=== PATIENT | male | born 1955 | race Caucasian/White ===

== ENCOUNTER 2016-09-20 04:45 | Emergency (ER) | payer MEDICARE, MEDICAID ==
[~2016-09-20] VITALS: Ht 180.3 cm; Wt 76.4 kg
[~2016-09-20 04:45] MED LIST: AMIO200T42 PO; AMLO5TAB2 PO; GLYB5TAB3 PO; LISI-167 PO; LISI-170 PO; METF10002 PO; METO-93 PO; METO25TA35 PO; RIVA20TA PO; WARF2TAB7 PO
[2016-09-20 04:47] VITALS: BP 184/90
[2016-09-20] MEDS ORDERED: ONDANSETRON ODT 4 MG PO ONE (07:30)
[2016-09-20 07:42] LABS: ASPARTATE AMINO TRANSFERASE 22 U/L (15-37); BLOOD UREA NITROGEN 21 mg/dL (7-18)
[2016-09-20] MEDS ORDERED: ONDANSETRON ODT 4 MG ONE (08:15)
== END 2016-09-20 08:32 | disposition left against medical advice (07) ==
LOC: ED 08:00
DX: R10.84 Generalized abdominal pain (principal); I10 Essential (primary) hypertension; I48.91 Unspecified atrial fibrillation; J44.9 Chronic obstructive pulmonary disease, unspecified; F17.210 Nicotine dependence, cigarettes, uncomplicated; F20.9 Schizophrenia, unspecified
CPT/HCPCS: 36415; 80053; 83690; 85025; 99284

== ENCOUNTER 2016-11-16 04:17 | Emergency (ER) | payer MEDICAID, MEDICARE ==
[~2016-11-16] VITALS: Ht 180.3 cm; Wt 80.1 kg
[2016-11-16 04:18] VITALS: BP 113/59
== END 2016-11-16 05:30 | disposition home or self-care (01) ==
LOC: ED 05:15
DX: R53.1 Weakness (principal); R53.83 Other fatigue; I50.9 Heart failure, unspecified; F20.9 Schizophrenia, unspecified; I48.91 Unspecified atrial fibrillation; J44.9 Chronic obstructive pulmonary disease, unspecified; I11.0 Hypertensive heart disease with heart failure; Z72.89 Other problems related to lifestyle
CPT/HCPCS: 82962; 93005; 99283

== ENCOUNTER 2016-12-12 22:11 | Inpatient (IN) | payer MEDICARE, MEDICAID ==
[~2016-12-12] VITALS: Ht 170.2 cm; Wt 84.5 kg
[2016-12-12 23:22] LABS: WHITE BLOOD COUNT 10.2 x10^3/uL (3.4-10)
[2016-12-12 23:23] LABS: HEMATOCRIT 21.8 % (39.2-51.8); HEMOGLOBIN 6.7 g/dL (13.7-18.0)
[2016-12-12 23:25] LABS: ASPARTATE AMINO TRANSFERASE 41 U/L (15-37); BLOOD UREA NITROGEN 24 mg/dL (7-18)
[2016-12-12 23:46] LABS: ANISOCYTOSIS 1+; HYPOCHROMIA 1+; MICROCYTOSIS 1+; OVALOCYTES 1+; POLYCHROMASIA 1+
[2016-12-12] MEDS ORDERED: LORazepam 2 MG/ML, 1ML ONE (23:46)
[2016-12-12] MEDS ORDERED: ZIPRASIDONE 20 MG INJ IM ONE (23:55)
[2016-12-13] VITALS (8 sets, daily range): BP systolic 159–194; BP diastolic 73–91
[2016-12-13] MEDS ORDERED: SODIUM CHLORIDE 0.9% 1,000ML IVBOLUS ONE
[2016-12-13] MEDS ORDERED: ZIPRASIDONE 20 MG INJ IM ONE
[2016-12-13] MEDS ORDERED: SODIUM CHLORIDE FLUSH 10ML SYR IVF ONE
[2016-12-13] MEDS ORDERED: PANTOPRAZOLE 80 MG in SODIUM CHLORIDE 0.9% 50 ML IVPB ONE (00:33)
[2016-12-13] MEDS ORDERED: NS + 20MEQ KCL 1,000 ML IV SCH (00:39)
[2016-12-13] MEDS ORDERED: PANTOPRAZOLE 40 MG IV IVP ONE (01:00)
[2016-12-13] MEDS ORDERED: POLYETHYLENE GLYCOL 17 GM PACKET PO PRN (01:00)
[2016-12-13] MEDS ORDERED: DOCUSATE 100 MG CAPSULE PO PRN (01:00)
[2016-12-13] MEDS ORDERED: ACETAMINOPHEN 325 MG TABLET PO PRN (01:00)
[2016-12-13] MEDS ORDERED: morphine SULFATE 10 MG/ML, 1ML IVPush PRN (01:00)
[2016-12-13] MEDS ORDERED: HYDROcodone/APAP 5/325 TABLET PO PRN (01:00)
[2016-12-13] MEDS ORDERED: ONDANSETRON 2MG/ML, 2ML IVPush PRN (01:00)
[2016-12-13] MEDS ORDERED: LORazepam 2 MG/ML, 1ML ONE (01:10)
[2016-12-13 01:22] LABS: FERRITIN 9.4 ng/mL (26-388)
[2016-12-13] MEDS ORDERED: LORazepam 2 MG/ML, 1ML IM PRN (01:30)
[2016-12-13] MEDS ORDERED: LORazepam 2 MG/ML, 1ML IM ONE ×2 (02:30)
[2016-12-13 04:02] LABS: PATH.CAST-FLAG NOT PRESENT; SPERM-FLAG NOT PRESENT; SRC-FLAG NOT PRESENT; XTAL-FLAG NOT PRESENT; YLC-FLAG NOT PRESENT
[2016-12-13 07:54] LABS: BLOOD UREA NITROGEN 18 mg/dL (7-18)
[2016-12-13 07:56] LABS: WHITE BLOOD COUNT 9.9 x10^3/uL (3.4-10)
[2016-12-13 07:58] LABS: DIFF TOTAL CELLS COUNTED 100 CELL DIFF
[2016-12-13] MEDS ORDERED: POTASSIUM CHLORIDE 20 MEQ TAB.ER.PRT PO ONE (08:00)
[2016-12-13] MEDS ORDERED: MAGNESIUM SULFATE PMX 2GM/50ML 50 ML IV ONE (08:00)
[2016-12-13 08:13] LABS: HEMATOCRIT 20.6 % (39.2-51.8); HEMOGLOBIN 6.6 g/dL (13.7-18.0)
[2016-12-13 08:33] LABS: ANISOCYTOSIS 1+; HYPOCHROMIA 1+; MICROCYTOSIS 1+; OVALOCYTES 1+; POLYCHROMASIA 1+; VERIFY COUNTS? YES
[2016-12-13] MEDS: AMIODARONE 200 MG TABLET PO SCH (09:00)
[2016-12-13] MEDS: METOPROLOL SUCCINATE 50 MG TAB.ER.24H PO SCH (09:00)
[2016-12-13] MEDS: NS + 20MEQ KCL 1,000 ML IV SCH ×2 (09:30→21:39)
[2016-12-13] MEDS ORDERED: LABETALOL 5MG/ML, 20ML IVPush PRN (14:00)
[2016-12-13] MEDS: IRON SUCROSE COMPLEX 100MG/5ML IV SCH (16:22)
[2016-12-13] MEDS ORDERED: LORazepam 2 MG/ML, 1ML IVPush PRN (21:30)
[2016-12-13] MEDS ORDERED: HALOPERIDOL 5 MG/ML IM PRN (21:30)
[2016-12-13 23:53] LABS: OCCBLD OBC PASS
[2016-12-14] MEDS ORDERED: MAGNESIUM SULFATE PMX 2GM/50ML 50 ML IV ONE ×2 (00:30→10:30)
[2016-12-14 02:00] VITALS: BP 146/72
[2016-12-14 06:28] LABS: HEMATOCRIT 26.8 % (39.2-51.8); HEMOGLOBIN 8.6 g/dL (13.7-18.0); WHITE BLOOD COUNT 9.1 x10^3/uL (3.4-10)
[2016-12-14 06:32] LABS: BLOOD UREA NITROGEN 11 mg/dL (7-18)
[2016-12-14 06:46] LABS: ASPARTATE AMINO TRANSFERASE 30 U/L (15-37)
[2016-12-14 08:20] VITALS: BP 160/61
[2016-12-14] MEDS: IRON SUCROSE COMPLEX 100MG/5ML IV SCH (08:21)
[2016-12-14] MEDS: METOPROLOL SUCCINATE 50 MG TAB.ER.24H PO SCH (08:21)
[2016-12-14] MEDS: AMIODARONE 200 MG TABLET PO SCH (08:21)
[2016-12-14] MEDS ORDERED: POTASSIUM CHLORIDE 20 MEQ TAB.ER.PRT PO ONE (10:30)
[2016-12-14 14:33] VITALS: BP 126/55
[2016-12-14] MEDS ORDERED: GOLYTELY 4,000ML ORAL.SOL PO ONE (17:00)
[2016-12-14] MEDS: MUPIROCIN OINT 2%, 22GM TP SCH (17:35)
[2016-12-14 18:51] VITALS: BP 146/78
[2016-12-14] MEDS: RISPERIDONE 2 MG TABLET PO SCH (20:12)
[2016-12-14] MEDS ORDERED: RISPERIDONE 2 MG TABLET PO SCH (21:00)
[2016-12-15] MEDS: MUPIROCIN OINT 2%, 22GM TP SCH ×2 (05:21→16:49)
[2016-12-15 06:23] LABS: HEMATOCRIT 24.8 % (39.2-51.8)
[2016-12-15 06:34] LABS: BLOOD UREA NITROGEN 16 mg/dL (7-18)
[2016-12-15 06:37] LABS: ASPARTATE AMINO TRANSFERASE 21 U/L (15-37)
[2016-12-15 08:00] VITALS: BP 161/69
[2016-12-15] MEDS: AMIODARONE 200 MG TABLET PO SCH (08:35)
[2016-12-15] MEDS: METOPROLOL SUCCINATE 50 MG TAB.ER.24H PO SCH (08:40)
[2016-12-15] MEDS: IRON SUCROSE COMPLEX 100MG/5ML IV SCH (13:33)
[2016-12-15 15:45] VITALS: BP 150/66
[2016-12-15] MEDS ORDERED: GOLYTELY 4,000ML ORAL.SOL PO ONE (16:00)
[2016-12-15 20:00] VITALS: BP 133/75
[2016-12-15] MEDS: RISPERIDONE 2 MG TABLET PO SCH (22:00)
[2016-12-16 02:26] VITALS: BP 177/76
[2016-12-16 05:23] LABS: HEMATOCRIT 26.6 % (39.2-51.8); HEMOGLOBIN 8.5 g/dL (13.7-18.0); WHITE BLOOD COUNT 9.4 x10^3/uL (3.4-10)
[2016-12-16 05:34] LABS: BLOOD UREA NITROGEN 14 mg/dL (7-18)
[2016-12-16 05:39] LABS: ASPARTATE AMINO TRANSFERASE 18 U/L (15-37)
[2016-12-16] MEDS ORDERED: MAGNESIUM SULFATE PMX 4GM/100M 100 ML IV ONE (07:30)
[2016-12-16 07:56] VITALS: BP_SYST 157; BP_SYST 163; BP_DIAS 67; BP_DIAS 80
[2016-12-16] MEDS: METOPROLOL SUCCINATE 50 MG TAB.ER.24H PO SCH ×2 (08:19→21:30)
[2016-12-16] MEDS: MUPIROCIN OINT 2%, 22GM TP SCH ×2 (08:19→18:00)
[2016-12-16] MEDS: IRON SUCROSE COMPLEX 100MG/5ML IV SCH (08:20)
[2016-12-16] MEDS: AMIODARONE 200 MG TABLET PO SCH (08:20)
[2016-12-16 16:22] VITALS: BP_SYST 160; BP_DIAS 64; BP_DIAS 73
[2016-12-16] MEDS ORDERED: OMNIPAQUE 350 MG/ML, 100ML BOTTLE ONE (19:14)
[2016-12-16 20:00] VITALS: BP 151/70
[2016-12-16] MEDS: RISPERIDONE 2 MG TABLET PO SCH (21:30)
[2016-12-17 01:44] VITALS: BP 161/67
[2016-12-17] MEDS: MUPIROCIN OINT 2%, 22GM TP SCH (05:07)
[2016-12-17 08:06] VITALS: BP 129/72
[2016-12-17] MEDS: METOPROLOL SUCCINATE 50 MG TAB.ER.24H PO SCH (09:00)
[2016-12-17] MEDS: IRON SUCROSE COMPLEX 100MG/5ML IV SCH (10:10)
[2016-12-17] MEDS: AMIODARONE 200 MG TABLET PO SCH (10:10)
[2016-12-17] MEDS ORDERED: METOPROLOL SUCCINATE 25 MG TAB.ER.24H PO SCH (21:00)
== END 2016-12-17 12:13 | disposition left against medical advice (07) | DRG 377 ==
LOC: ED 12-13 00:29 → EDIP 12-13 00:34 → UNDOADMIN 12-13 00:34 → SUATTDRO 12-13 00:37 → EDIP 12-13 00:39 → ED 12-13 00:41 → 4WST 12-13 03:35
PROVIDERS: ADMIT Family Medicine; ATTEND Family Medicine
PROC: 30233N1 Transfusion of Nonautologous Red Blood Cells into Peripheral Vein, Percutaneous Approach (ICD-10-PCS; principal; 2016-12-13)
DX: K92.2 Gastrointestinal hemorrhage, unspecified (principal); E43 Unspecified severe protein-calorie malnutrition; D68.69 Other thrombophilia; E11.22 Type 2 diabetes mellitus with diabetic chronic kidney disease; E87.1 Hypo-osmolality and hyponatremia; I13.0 Hypertensive heart and chronic kidney disease with heart failure and stage 1 through stage 4 chronic kidney disease, or unspecified chronic kidney disease; I50.32 Chronic diastolic (congestive) heart failure; I48.92 Unspecified atrial flutter; F20.0 Paranoid schizophrenia; J98.11 Atelectasis; D50.0 Iron deficiency anemia secondary to blood loss (chronic); I48.91 Unspecified atrial fibrillation; E87.6 Hypokalemia; N18.9 Chronic kidney disease, unspecified; J44.9 Chronic obstructive pulmonary disease, unspecified; D47.3 Essential (hemorrhagic) thrombocythemia; E83.42 Hypomagnesemia; F17.210 Nicotine dependence, cigarettes, uncomplicated; I34.0 Nonrheumatic mitral (valve) insufficiency; R62.7 Adult failure to thrive; K63.5 Polyp of colon; Z53.29 Procedure and treatment not carried out because of patient's decision for other reasons; K40.90 Unilateral inguinal hernia, without obstruction or gangrene, not specified as recurrent; K57.90 Diverticulosis of intestine, part unspecified, without perforation or abscess without bleeding; Z59.0 Homelessness; Z91.14 Patient's other noncompliance with medication regimen; Z68.29 Body mass index [BMI] 29.0-29.9, adult
CPT/HCPCS: 36415; 71010; 74177; 80048; 80053; 80307; 81001; 82272; 82728; 83540; 83550; 83690; 83735; 84100; 84439; 84443; 84466; 85025; 85610; 85730; 86850; 86900; 86923; 87324; 93005; 96365; 96372; J1756; J3480; J3486; Q9967; C9113; G0479; J1630; J2060; J3475; J7030; P9016

== ENCOUNTER 2017-01-01 23:18 | Emergency (ER) | payer MEDICAID, MEDICARE ==
[~2017-01-01] VITALS: Ht 180.3 cm; Wt 70.0 kg
[2017-01-01 23:21] VITALS: BP 167/95
== END 2017-01-02 00:22 | disposition home or self-care (01) ==
LOC: ED 23:33
DX: S80.212A Abrasion, left knee, initial encounter (principal); S80.211A Abrasion, right knee, initial encounter; S60.311A Abrasion of right thumb, initial encounter; S60.410A Abrasion of right index finger, initial encounter; S60.412A Abrasion of right middle finger, initial encounter; S60.414A Abrasion of right ring finger, initial encounter; S60.416A Abrasion of right little finger, initial encounter; I10 Essential (primary) hypertension; F20.9 Schizophrenia, unspecified; I48.91 Unspecified atrial fibrillation; J44.9 Chronic obstructive pulmonary disease, unspecified; V29.09XA Motorcycle driver injured in collision with other motor vehicles in nontraffic accident, initial encounter; Y93.55 Activity, bike riding; Y99.8 Other external cause status; Y92.488 Other paved roadways as the place of occurrence of the external cause
CPT/HCPCS: 99283; 99284

== ENCOUNTER 2017-04-06 14:40 | Observation (INO) | payer MEDICARE, MEDICAID ==
[~2017-04-06] VITALS: Ht 172.7 cm; Wt 75.0 kg
[2017-04-06 15:24] LABS: ALANINE AMINOTRANSFERASE 18 U/L (12-78); ALBUMIN 3.1 g/dL (3.4-5.0); ANION GAP 7 mmol/L (5-15); CALCIUM 8.5 mg/dL (8.5-10.1); CHLORIDE 106 mmol/L (98-107)
[2017-04-06 15:25] LABS: SALICYLATE LEVEL < 1.7 mg/dL (2.8-20.0)
[2017-04-06 15:26] LABS: ALKALINE PHOSPHATASE 130 U/L (45-117); BILIRUBIN,TOTAL 0.3 mg/dL (0.2-1.0); CREATININE 1.05 mg/dL (0.7-1.3); TOTAL PROTEIN 7.8 g/dL (6.4-8.2)
[2017-04-06 15:28] LABS: ACETAMINOPHEN < 2 mcg/mL (10-30)
[2017-04-06 15:29] LABS: MEAN CORPUSCULAR HEMOGLOBIN 20.9 pg (27.5-34.5); MEAN CORPUSCULAR HGB CONC 30.3 g/dL (33.2-36.2); MEAN CORPUSCULAR VOLUME 69.1 fL (81-97); MEAN PLATELET VOLUME 7.1 fL (7.4-10.4); PLATELET COUNT 390 x10^3/uL (130-400); RED CELL DISTRIBUTION WIDTH 19.9 % (9.4-14.8)
[2017-04-06] MEDS ORDERED: LORazepam 1MG TABLET ONE (15:29)
[2017-04-06] MEDS ORDERED: LORazepam 1MG TABLET PO ONE (15:30)
[2017-04-06 15:46] LABS: BASOPHILS # (AUTO) 0.11 x10^3/uL (0-0.1); BASOPHILS % (AUTO) 2 % (0-1); EOSINOPHILS # (AUTO) 0.46 x10^3/uL (0-0.4); EOSINOPHILS % (AUTO) 7 % (1-7); LYMPHOCYTES % (AUTO) 23 % (22-44); MD MORPH REVIEW ONLY; MONOCYTES # (AUTO) 0.62 x10^3/uL (0.2-0.8); MONOCYTES % (AUTO) 10 % (2-9); NEUTROPHILS % (AUTO) 59 % (42-75)
[2017-04-06 15:47] LABS: ANISOCYTOSIS 1+; HYPOCHROMIA 1+; MICROCYTOSIS 1+
[2017-04-06 15:48] LABS: <PLATELET ESTIMATE> ADEQUATE; <PLT MORPHOLOGY> NORMAL PLT MORPH; OVALOCYTES 1+
[2017-04-06] MEDS ORDERED: LORazepam 1MG TABLET PO PRN (19:00)
[2017-04-06] MEDS ORDERED: ACETAMINOPHEN 325 MG TABLET PO PRN (19:00)
[2017-04-06 19:48] LABS: MICROSCOPIC AUTO
[2017-04-06 19:55] LABS: CULTURE INDICATED? NO
[2017-04-06 19:56] LABS: AMPHETAMINE SCREEN, URINE Negative (Negative); BARBITURATE SCREEN, URINE Negative (Negative); BENZODIAZEPINE SCREEN, URINE Negative (Negative); CANNABINOID SCREEN, URINE Negative (Negative); COCAINE SCREEN, URINE Negative (Negative); METHADONE SCREEN, URINE Negative (Negative); OPIATE SCREEN, URINE Negative (Negative)
[2017-04-07 01:52] VITALS: BP 151/73
[2017-04-07 06:41] VITALS: BP 140/65
[2017-04-07] MEDS ORDERED: ACETAMINOPHEN 325 MG TABLET PO ONE (08:30)
== END 2017-04-07 11:42 | disposition home or self-care (01) ==
LOC: ED 16:27 → EDIP 18:54 → 4NOR 20:55
PROVIDERS: ADMIT Internal Medicine; ATTEND Internal Medicine
DX: F29 Unspecified psychosis not due to a substance or known physiological condition (principal); R62.7 Adult failure to thrive; F20.9 Schizophrenia, unspecified; J44.9 Chronic obstructive pulmonary disease, unspecified; I48.91 Unspecified atrial fibrillation; E11.22 Type 2 diabetes mellitus with diabetic chronic kidney disease; I13.0 Hypertensive heart and chronic kidney disease with heart failure and stage 1 through stage 4 chronic kidney disease, or unspecified chronic kidney disease; N18.9 Chronic kidney disease, unspecified; I50.30 Unspecified diastolic (congestive) heart failure; D63.1 Anemia in chronic kidney disease; F63.81 Intermittent explosive disorder; I34.0 Nonrheumatic mitral (valve) insufficiency; K57.90 Diverticulosis of intestine, part unspecified, without perforation or abscess without bleeding; Z59.0 Homelessness; Z91.19 Patient's noncompliance with other medical treatment and regimen; Z91.83 Wandering in diseases classified elsewhere
CPT/HCPCS: 36415; 71045; 80053; 80307; 80329; 81001; 82962; 85025; 86850; 86900; 86923; 93005; 99285; G0378; G0480

== ENCOUNTER 2017-08-02 18:11 | Inpatient (IN) | payer MEDICAID, MEDICARE ==
[~2017-08-02] VITALS: Ht 180.3 cm; Wt 77.7 kg
[~2017-08-02 18:11] MED LIST changes: -WARF2TAB7 PO; +WARF2TAB99 PO
[2017-08-02] MEDS ORDERED: SODIUM CHLORIDE 0.9% 1,000ML IVBOLUS ONE (19:00)
[2017-08-02 19:38] LABS: MEAN CORPUSCULAR HEMOGLOBIN 21.9 pg (27.5-34.5); MEAN CORPUSCULAR HGB CONC 31.1 g/dL (33.2-36.2); MEAN CORPUSCULAR VOLUME 70.3 fL (81-97); MEAN PLATELET VOLUME 7.2 fL (7.4-10.4); PLATELET COUNT 469 x10^3/uL (130-400); RED CELL DISTRIBUTION WIDTH 30.5 % (9.4-14.8)
[2017-08-02 19:45] LABS: ALANINE AMINOTRANSFERASE 55 U/L (12-78); ALBUMIN 2.3 g/dL (3.4-5.0); ANION GAP 5 mmol/L (5-15); CALCIUM 7.2 mg/dL (8.5-10.1); CHLORIDE 102 mmol/L (98-107); CREATININE 1.11 mg/dL (0.7-1.3)
[2017-08-02 19:47] LABS: ALKALINE PHOSPHATASE 190 U/L (45-117); BILIRUBIN,TOTAL 0.4 mg/dL (0.2-1.0)
[2017-08-02] MEDS ORDERED: LORazepam 2 MG/ML, 1ML ONE (19:57)
[2017-08-02 19:58] LABS: MD YES
[2017-08-02 20:00] LABS: BAND#(MANUAL) 0.31 x10^3/uL; BANDS%(MANUAL) 3 % (0-7); BASOS% (MANUAL) 1 % (0-1); EOS% (MANUAL) 2 % (1-7); LYMPH#(MANUAL) 0.41 x10^3/uL (1-3.4); LYMPHS% (MANUAL) 4 % (22-44); MONOS% (MANUAL) 2 % (2-9); SEG#(MANUAL) 8.98 x10^3/uL (1.8-6.8); SEGS% (MANUAL) 88 % (42-75)
[2017-08-02] MEDS ORDERED: LORazepam 2 MG/ML, 1ML IVPush ONE (20:00)
[2017-08-02 20:01] LABS: ANISOCYTOSIS 2+; HYPOCHROMIA 2+; MICROCYTOSIS 1+; OVALOCYTES 1+
[2017-08-02 20:02] LABS: <PLATELET ESTIMATE> INCREASED; <PLT MORPHOLOGY> NORMAL PLT MORPH; POLYCHROMASIA 1+
[2017-08-02] MEDS ORDERED: VERAPAMIL 2.5 MG/ML, 2ML ONE (20:04)
[2017-08-02] MEDS ORDERED: MIDAZOLAM 1 MG/ML, 2ML ONE ×2 (20:15→20:44)
[2017-08-02] MEDS ORDERED: DIPHENHYDRAMINE 50 MG/ML, 1ML ONE (20:16)
[2017-08-02] MEDS ORDERED: MIDAZOLAM 1 MG/ML, 2ML IVPush ONE ×3 (20:30→21:30)
[2017-08-02] MEDS ORDERED: VERAPAMIL 2.5 MG/ML, 2ML IVPush ONE ×2 (20:30→23:30)
[2017-08-02] MEDS ORDERED: DIPHENHYDRAMINE 50 MG/ML, 1ML IVPush ONE (20:30)
[2017-08-02 20:54] LABS: TROPONIN I 0.019 ng/mL (0.000-0.045)
[2017-08-02] MEDS ORDERED: OMNIPAQUE 350 MG/ML, 100ML BOTTLE ONE (21:17)
[2017-08-02] MEDS ORDERED: FUROSEMIDE 40 MG/4 ML ONE (22:40)
[2017-08-02] MEDS ORDERED: FUROSEMIDE 40 MG/4 ML IV ONE (23:00)
[2017-08-03] MEDS ORDERED: DILTIAZEM 5 MG/ML, 5ML IVPush ONE
[2017-08-03] MEDS ORDERED: POLYETHYLENE GLYCOL 17 GM PACKET PO PRN (00:30)
[2017-08-03] MEDS ORDERED: BISACODYL 10 MG SUPP PR PRN (00:30)
[2017-08-03] MEDS ORDERED: ACETAMINOPHEN 325 MG TABLET PO PRN (00:30)
[2017-08-03] MEDS ORDERED: ONDANSETRON 2MG/ML, 2ML IVPush PRN (00:30)
[2017-08-03] MEDS ORDERED: DILTIAZEM 5 MG/ML, 5ML IVPush PRN (00:30)
[2017-08-03 01:29] LABS: FREE T4 (FREE THYROXINE) 1.09 ng/dL (0.76-1.46); TROPONIN I 0.019 ng/mL (0.000-0.045)
[2017-08-03 02:28] LABS: MICROSCOPIC NOT IND
[2017-08-03 02:33] LABS: CULTURE INDICATED? NO
[2017-08-03 06:53] LABS: MEAN CORPUSCULAR HEMOGLOBIN 21.4 pg (27.5-34.5); PLATELET COUNT 409 x10^3/uL (130-400); RED CELL DISTRIBUTION WIDTH 29.5 % (9.4-14.8)
[2017-08-03] MEDS ORDERED: METOPROLOL 1 MG/ML, 5ML IVPush ONE (07:00)
[2017-08-03] MEDS ORDERED: MAGNESIUM SULFATE 4 GM in SODIUM CHLORIDE 0.9% 100 ML IV ONE (07:00)
[2017-08-03 07:02] LABS: ALANINE AMINOTRANSFERASE 55 U/L (12-78); ALBUMIN 2.1 g/dL (3.4-5.0); ANION GAP 8 mmol/L (5-15); CALCIUM 7.4 mg/dL (8.5-10.1); CHLORIDE 103 mmol/L (98-107); CREATININE 1.04 mg/dL (0.7-1.3)
[2017-08-03 07:06] LABS: ALKALINE PHOSPHATASE 168 U/L (45-117); BILIRUBIN,TOTAL 0.5 mg/dL (0.2-1.0); TOTAL PROTEIN 6.5 g/dL (6.4-8.2); TROPONIN I 0.016 ng/mL (0.000-0.045)
[2017-08-03] MEDS ORDERED: MAGNESIUM SULFATE PMX 4GM/100M 100 ML IV ONE (07:21)
[2017-08-03 07:27] LABS: MD YES
[2017-08-03 07:29] LABS: ANISOCYTOSIS 2+; BASOS#(MANUAL) 0.09 x10^3/uL (0-0.1); BASOS% (MANUAL) 1 % (0-1); EOS#(MANUAL) 0.28 x10^3/uL (0.0-0.4); EOS% (MANUAL) 3 % (1-7); LYMPH#(MANUAL) 0.92 x10^3/uL (1-3.4); LYMPHS% (MANUAL) 10 % (22-44); MICROCYTOSIS 1+; MONOS#(MANUAL) 0.46 x10^3/uL (0.3-2.7); MONOS% (MANUAL) 5 % (2-9); POLYCHROMASIA 1+; SEG#(MANUAL) 7.45 x10^3/uL (1.8-6.8); SEGS% (MANUAL) 81 % (42-75)
[2017-08-03] MEDS ORDERED: FUROSEMIDE 40 MG/4 ML ONE (07:29)
[2017-08-03] MEDS ORDERED: METOPROLOL 1 MG/ML, 5ML ONE (07:29)
[2017-08-03] MEDS ORDERED: POTASSIUM CHLORIDE 20 MEQ TAB.ER.PRT ONE (07:29)
[2017-08-03 07:30] LABS: <PLATELET ESTIMATE> INCREASED; <PLT MORPHOLOGY> NORMAL PLT MORPH; HYPOCHROMIA 1+; OVALOCYTES 1+
[2017-08-03] MEDS ORDERED: FUROSEMIDE 40 MG/4 ML IV SCH (07:30)
[2017-08-03] MEDS ORDERED: POTASSIUM CHLORIDE 20 MEQ TAB.ER.PRT PO SCH (08:00)
[2017-08-03] MEDS ORDERED: SENNA/DOCUSATE TABLET PO SCH (09:00)
[2017-08-03] MEDS ORDERED: SODIUM CHLORIDE FLUSH 10ML SYR IVF SCH (09:00)
[2017-08-03 09:14] VITALS: BP 144/97
[2017-08-03] MEDS ORDERED: METOPROLOL TARTRATE 25 MG TABLET PO SCH ×2 (10:00→18:00)
[2017-08-03] MEDS ORDERED: METOPROLOL 1 MG/ML, 5ML IVPush PRN (12:30)
[2017-08-03 12:49] LABS: INTERNATIONAL NORMALIZED RATIO 1.09 (0.93-1.1); PROTHROMBIN TIME 11.3 Seconds (9.6-11.5)
== END 2017-08-03 13:30 | disposition left against medical advice (07) | DRG 291 ==
LOC: ED 23:32 → EDIP 23:53 → 4WST 08-03 08:30
PROVIDERS: ADMIT Internal Medicine; ATTEND Internal Medicine
DX: I13.0 Hypertensive heart and chronic kidney disease with heart failure and stage 1 through stage 4 chronic kidney disease, or unspecified chronic kidney disease (principal); I50.33 Acute on chronic diastolic (congestive) heart failure; E43 Unspecified severe protein-calorie malnutrition; S12.500A Unspecified displaced fracture of sixth cervical vertebra, initial encounter for closed fracture; D68.69 Other thrombophilia; E11.22 Type 2 diabetes mellitus with diabetic chronic kidney disease; E87.1 Hypo-osmolality and hyponatremia; J98.11 Atelectasis; S12.600A Unspecified displaced fracture of seventh cervical vertebra, initial encounter for closed fracture; I48.92 Unspecified atrial flutter; I48.91 Unspecified atrial fibrillation; F20.9 Schizophrenia, unspecified; I27.20 Pulmonary hypertension, unspecified; N18.9 Chronic kidney disease, unspecified; J44.9 Chronic obstructive pulmonary disease, unspecified; Z91.19 Patient's noncompliance with other medical treatment and regimen; Z59.0 Homelessness; D50.9 Iron deficiency anemia, unspecified; F17.200 Nicotine dependence, unspecified, uncomplicated; G89.29 Other chronic pain; I34.0 Nonrheumatic mitral (valve) insufficiency; I44.0 Atrioventricular block, first degree; V03.99XA Pedestrian with other conveyance injured in collision with car, pick-up truck or van, unspecified whether traffic or nontraffic accident, initial encounter; Y93.89 Activity, other specified; Y92.488 Other paved roadways as the place of occurrence of the external cause; Y99.8 Other external cause status; Z68.23 Body mass index [BMI] 23.0-23.9, adult; Z53.21 Procedure and treatment not carried out due to patient leaving prior to being seen by health care provider
CPT/HCPCS: 36415; 70450; 71045; 71275; 72050; 72125; 80053; 80307; 81003; 82728; 83540; 83550; 83605; 83735; 83880; 84145; 84439; 84443; 84484; 85025; 85610; 87040; 93005; 96361; 96374; 96375; 96376; J1940; J2250; Q9967; J1200; J2060; J3475; J7030

== ENCOUNTER 2017-08-17 14:22 | Inpatient (IN) | payer MEDICARE ==
[~2017-08-17] VITALS: Ht 180.3 cm; Wt 101.0 kg
[2017-08-17] MEDS ORDERED: SODIUM CHLORIDE 0.9% 1,000ML IVBOLUS ONE (15:00)
[2017-08-17 15:02] LABS: MEAN CORPUSCULAR HEMOGLOBIN 20.7 pg (27.5-34.5); MEAN CORPUSCULAR HGB CONC 30.3 g/dL (33.2-36.2); MEAN CORPUSCULAR VOLUME 68.3 fL (81-97); MEAN PLATELET VOLUME 6.8 fL (7.4-10.4); PLATELET COUNT 527 x10^3/uL (130-400); RED CELL DISTRIBUTION WIDTH 28.7 % (9.4-14.8)
[2017-08-17 15:09] LABS: INTERNATIONAL NORMALIZED RATIO 1.3 (0.93-1.1); PROTHROMBIN TIME 13.5 Seconds (9.6-11.5)
[2017-08-17 15:12] LABS: ALANINE AMINOTRANSFERASE 135 U/L (12-78); ALBUMIN 2.1 g/dL (3.4-5.0); ANION GAP 8 mmol/L (5-15); CALCIUM 7.2 mg/dL (8.5-10.1); CHLORIDE 102 mmol/L (98-107); CREATININE 1.58 mg/dL (0.7-1.3)
[2017-08-17 15:17] LABS: ALKALINE PHOSPHATASE 136 U/L (45-117); BILIRUBIN,TOTAL 0.6 mg/dL (0.2-1.0); T4 (THYROXINE) 5.2 mcg/dL (4.5-12.1); TOTAL PROTEIN 6.8 g/dL (6.4-8.2); TROPONIN I 0.073 ng/mL (0.000-0.045)
[2017-08-17 15:28] LABS: BASOPHILS # (AUTO) 0.07 x10^3/uL (0-0.1); BASOPHILS % (AUTO) 1 % (0-1); EOSINOPHILS % (AUTO) 1 % (1-7); LYMPHOCYTES # (AUTO) 0.96 x10^3/uL (1-3.4); LYMPHOCYTES % (AUTO) 12 % (22-44); MD MORPH REVIEW ONLY; MONOCYTES # (AUTO) 0.64 x10^3/uL (0.2-0.8); MONOCYTES % (AUTO) 8 % (2-9); NEUTROPHILS # (AUTO) 6.16 x10^3/uL (1.8-6.8); NEUTROPHILS % (AUTO) 78 % (42-75)
[2017-08-17 15:38] LABS: ANISOCYTOSIS 2+
[2017-08-17 15:39] LABS: HYPOCHROMIA 1+
[2017-08-17 15:40] LABS: ACANTHOCYTES 1+; CRENATED 1+; OVALOCYTES 1+; SCHISTOCYTES 1+; TARGET CELLS 1+; TEAR DROPS 1+
[2017-08-17] MEDS ORDERED: FURO-93 PO (15:40)
[2017-08-17] MEDS ORDERED: METO25TA35 PO (15:40)
[2017-08-17 15:43] LABS: <PLATELET ESTIMATE> INCREASED; <PLT MORPHOLOGY> NORMAL PLT MORPH; BITE CELLS 1+
[2017-08-17 15:45] LABS: MICROCYTOSIS 1+
[2017-08-17] MEDS ORDERED: METOPROLOL 1 MG/ML, 5ML ONE (16:06)
[2017-08-17] MEDS ORDERED: METOPROLOL 1 MG/ML, 5ML IVPush ONE (16:30)
[2017-08-17] MEDS ORDERED: FUROSEMIDE 40 MG/4 ML IV ONE (16:30)
[2017-08-17] MEDS ORDERED: METOPROLOL TARTRATE 50 MG TABLET PO ONE (16:30)
[2017-08-17] MEDS ORDERED: FUROSEMIDE 40 MG/4 ML ONE (16:39)
[2017-08-17] MEDS ORDERED: ONDANSETRON 2MG/ML, 2ML IVPush PRN (17:00)
[2017-08-17] MEDS ORDERED: DOCUSATE 100 MG CAPSULE PO PRN (17:00)
[2017-08-17] MEDS ORDERED: MAGNESIUM SULFATE PMX 4GM/100M 100 ML IV ONE (17:00)
[2017-08-17] MEDS: FUROSEMIDE 40 MG/4 ML IV SCH (17:00)
[2017-08-17] MEDS ORDERED: CEFTRIAXONE 250 MG IM ONE (17:00)
[2017-08-17] MEDS ORDERED: POLYETHYLENE GLYCOL 17 GM PACKET PO PRN (17:00)
[2017-08-17] MEDS ORDERED: ACETAMINOPHEN 325 MG TABLET PO PRN (17:00)
[2017-08-17] MEDS ORDERED: hydrALAzine 20 MG/ML, 1ML IVPush PRN (17:00)
[2017-08-17] MEDS ORDERED: BISACODYL 10 MG SUPP PR PRN (17:00)
[2017-08-17] MEDS ORDERED: CEFTRIAXONE 250 MG ONE (17:55)
[2017-08-17] MEDS ORDERED: POTASSIUM CHLORIDE 20 MEQ TAB.ER.PRT ONE (17:55)
[2017-08-17] MEDS ORDERED: HEPARIN 5,000 UNITS/ML, 1ML ONE (17:55)
[2017-08-17] MEDS ORDERED: LIDOCAINE-MPF 1%, 5ML ONE (17:55)
[2017-08-17] MEDS: HEPARIN 5,000 UNITS/ML, 1ML SQ SCH (18:26)
[2017-08-17] MEDS: POTASSIUM CHLORIDE 20 MEQ TAB.ER.PRT PO SCH (18:26)
[2017-08-17] MEDS: METOPROLOL TARTRATE 25 MG TABLET PO SCH (20:43)
[2017-08-17] MEDS: DOXYCYCLINE 100MG TABLET PO SCH (20:43)
[2017-08-17] MEDS: SODIUM CHLORIDE FLUSH 10ML SYR IVF SCH (20:53)
[2017-08-17] MEDS: HALOPERIDOL 5 MG/ML IM PRN (21:21)
[2017-08-17 21:39] LABS: TROPONIN I 0.081 ng/mL (0.000-0.045)
[2017-08-18] MEDS: HEPARIN 5,000 UNITS/ML, 1ML SQ SCH ×3 (01:20→17:07)
[2017-08-18 02:41] VITALS: BP 128/81
[2017-08-18 02:48] LABS: MEAN CORPUSCULAR HEMOGLOBIN 21.5 pg (27.5-34.5); MEAN CORPUSCULAR HGB CONC 31.2 g/dL (33.2-36.2); MEAN CORPUSCULAR VOLUME 68.7 fL (81-97); MEAN PLATELET VOLUME 7.1 fL (7.4-10.4); PLATELET COUNT 475 x10^3/uL (130-400); RED BLOOD COUNT 3.76 x10^6/uL (4.38-5.82); RED CELL DISTRIBUTION WIDTH 29.5 % (9.4-14.8)
[2017-08-18 02:50] LABS: BASOPHILS # (AUTO) 0.05 x10^3/uL (0-0.1); BASOPHILS % (AUTO) 1 % (0-1); EOSINOPHILS # (AUTO) 0.31 x10^3/uL (0-0.4); EOSINOPHILS % (AUTO) 4 % (1-7); LYMPHOCYTES # (AUTO) 1.49 x10^3/uL (1-3.4); LYMPHOCYTES % (AUTO) 18 % (22-44); MD MORPH REVIEW ONLY; MONOCYTES # (AUTO) 0.83 x10^3/uL (0.2-0.8); MONOCYTES % (AUTO) 10 % (2-9); NEUTROPHILS # (AUTO) 5.41 x10^3/uL (1.8-6.8); NEUTROPHILS % (AUTO) 67 % (42-75)
[2017-08-18 02:59] LABS: ALANINE AMINOTRANSFERASE 130 U/L (12-78); ANION GAP 8 mmol/L (5-15); CALCIUM 7.6 mg/dL (8.5-10.1); CHLORIDE 103 mmol/L (98-107); CREATININE 1.46 mg/dL (0.7-1.3)
[2017-08-18 03:00] LABS: ANISOCYTOSIS 2+; MICROCYTOSIS 1+; OVALOCYTES 1+; POLYCHROMASIA 1+; SCHISTOCYTES 1+; TEAR DROPS 1+
[2017-08-18 03:01] LABS: ALKALINE PHOSPHATASE 139 U/L (45-117); BILIRUBIN,TOTAL 0.3 mg/dL (0.2-1.0); TOTAL PROTEIN 6.4 g/dL (6.4-8.2)
[2017-08-18 03:03] LABS: CRENATED 1+; TROPONIN I 0.071 ng/mL (0.000-0.045)
[2017-08-18 03:04] LABS: ACANTHOCYTES 1+; BITE CELLS 1+
[2017-08-18 03:05] LABS: <PLATELET ESTIMATE> INCREASED; <PLT MORPHOLOGY> NORMAL PLT MORPH
[2017-08-18] MEDS: HALOPERIDOL 5 MG/ML IM PRN (03:06)
[2017-08-18 08:24] VITALS: BP 127/79
[2017-08-18] MEDS: FUROSEMIDE 40 MG/4 ML IV SCH (08:26)
[2017-08-18] MEDS: POTASSIUM CHLORIDE 20 MEQ TAB.ER.PRT PO SCH ×2 (08:27→08:48)
[2017-08-18] MEDS: DOXYCYCLINE 100MG TABLET PO SCH (08:27)
[2017-08-18] MEDS: SODIUM CHLORIDE FLUSH 10ML SYR IVF SCH ×2 (08:27→22:25)
[2017-08-18] MEDS: METOPROLOL TARTRATE 25 MG TABLET PO SCH (08:27)
[2017-08-18] MEDS: FUROSEMIDE 40 MG TABLET PO SCH (08:48)
[2017-08-18] MEDS: ISOSORBIDE DINITRATE 10 MG TABLET PO SCH ×4 (10:07→22:24)
[2017-08-18 12:14] LABS: FOLATE LEVEL 16.6 ng/mL (3.1-17.5)
[2017-08-18 15:45] VITALS: BP 107/67
[2017-08-18] MEDS: CARVEDILOL 3.125 MG TABLET PO SCH ×2 (17:07→17:18)
[2017-08-18 20:03] VITALS: BP 134/74
[2017-08-19] MEDS: HEPARIN 5,000 UNITS/ML, 1ML SQ SCH ×3 (01:44→16:46)
[2017-08-19 01:48] VITALS: BP 131/88
[2017-08-19] MEDS: LORazepam 1MG TABLET PO PRN ×2 (02:46→02:48)
[2017-08-19] MEDS: HALOPERIDOL 5 MG/ML IM PRN (03:32)
[2017-08-19 05:58] LABS: ANION GAP 7 mmol/L (5-15); CALCIUM 7.4 mg/dL (8.5-10.1); CHLORIDE 105 mmol/L (98-107); CREATININE 1.17 mg/dL (0.7-1.3)
[2017-08-19 06:29] VITALS: BP 138/83
[2017-08-19 08:45] VITALS: BP 160/125
[2017-08-19] MEDS: POTASSIUM CHLORIDE 20 MEQ TAB.ER.PRT PO SCH (08:48)
[2017-08-19] MEDS: FUROSEMIDE 40 MG TABLET PO SCH (08:48)
[2017-08-19] MEDS: ISOSORBIDE DINITRATE 10 MG TABLET PO SCH ×3 (08:49→23:32)
[2017-08-19] MEDS: CARVEDILOL 3.125 MG TABLET PO SCH ×2 (08:49→16:35)
[2017-08-19] MEDS: SODIUM CHLORIDE FLUSH 10ML SYR IVF SCH ×2 (08:50→23:33)
[2017-08-19 11:32] VITALS: BP 105/64
[2017-08-19 14:58] VITALS: BP 117/71
[2017-08-19] MEDS: IRON SUCROSE COMPLEX 100MG/5ML IV SCH (16:36)
[2017-08-19 19:14] VITALS: BP_SYST 93
[2017-08-20 01:57] VITALS: BP 125/77
[2017-08-20] MEDS: HEPARIN 5,000 UNITS/ML, 1ML SQ SCH ×2 (02:31→08:16)
[2017-08-20] MEDS: HALOPERIDOL 5 MG/ML IM PRN (04:47)
[2017-08-20] MEDS: CARVEDILOL 3.125 MG TABLET PO SCH (04:47)
[2017-08-20] MEDS ORDERED: LEVOTHYROXINE 25 MCG TABLET PO SCH (06:00)
[2017-08-20 07:31] VITALS: BP 122/83
[2017-08-20] MEDS: IRON SUCROSE COMPLEX 100MG/5ML IV SCH (08:16)
[2017-08-20] MEDS: FUROSEMIDE 40 MG TABLET PO SCH (08:16)
[2017-08-20] MEDS: POTASSIUM CHLORIDE 20 MEQ TAB.ER.PRT PO SCH (08:16)
[2017-08-20] MEDS: ISOSORBIDE DINITRATE 10 MG TABLET PO SCH (08:17)
[2017-08-20] MEDS: SODIUM CHLORIDE FLUSH 10ML SYR IVF SCH (08:17)
[2017-08-20] MEDS ORDERED: LISI2.5T PO (10:31)
[2017-08-20] MEDS ORDERED: AMLO10TA2 PO (10:31)
[2017-08-20 13:07] VITALS: BP 105/71
[2017-08-20] MEDS ORDERED: CARV3.1212 PO (14:12)
[2017-08-20] MEDS ORDERED: FURO40TA6 PO (14:12)
[2017-08-20] MEDS ORDERED: LEVO25TA2 PO (14:12)
[2017-08-20] MEDS ORDERED: AMLO2.5T PO (14:12)
[2017-08-20] MEDS ORDERED: FERR324T5 PO (14:16)
== END 2017-08-20 16:02 | disposition home or self-care (01) | DRG 291 ==
LOC: ED 16:45 → EDIP 16:46 → ED 16:53 → 5SO 19:24
PROVIDERS: ADMIT Internal Medicine; ATTEND Internal Medicine
DX: I13.0 Hypertensive heart and chronic kidney disease with heart failure and stage 1 through stage 4 chronic kidney disease, or unspecified chronic kidney disease (principal); N17.0 Acute kidney failure with tubular necrosis; E43 Unspecified severe protein-calorie malnutrition; E11.22 Type 2 diabetes mellitus with diabetic chronic kidney disease; I27.20 Pulmonary hypertension, unspecified; E87.1 Hypo-osmolality and hyponatremia; E83.42 Hypomagnesemia; I48.91 Unspecified atrial fibrillation; J98.11 Atelectasis; I50.9 Heart failure, unspecified; J44.9 Chronic obstructive pulmonary disease, unspecified; D64.9 Anemia, unspecified; N45.1 Epididymitis; D50.9 Iron deficiency anemia, unspecified; E66.9 Obesity, unspecified; Z68.31 Body mass index [BMI] 31.0-31.9, adult; F20.9 Schizophrenia, unspecified; I34.0 Nonrheumatic mitral (valve) insufficiency; L98.9 Disorder of the skin and subcutaneous tissue, unspecified; N18.3 Chronic kidney disease, stage 3 (moderate); N50.89 Other specified disorders of the male genital organs; Z59.0 Homelessness; Z78.9 Other specified health status; Z79.899 Other long term (current) drug therapy; Z87.891 Personal history of nicotine dependence; Z91.19 Patient's noncompliance with other medical treatment and regimen
CPT/HCPCS: 36415; 71045; 76870; 80048; 80053; 80074; 80307; 82607; 82746; 83540; 83550; 83735; 83880; 84436; 84443; 84484; 85025; 85610; 85730; 86704; 86706; 86708; 86803; 87340; 93005; 93306; 93975; 96372; 96374; 96375; J0696; J1644; J1756; J1940; J1630; J3475; J7030

== ENCOUNTER 2017-08-23 17:27 | Emergency (ER) | payer MEDICARE ==
[~2017-08-23] VITALS: Ht 180.3 cm; Wt 91.0 kg
[~2017-08-23 17:27] MED LIST changes: +AMLO10TA2 PO; +AMLO2.5T PO; +CARV3.1212 PO; +FERR324T5 PO; +FURO-93 PO; +FURO40TA6 PO; +LEVO25TA2 PO; +LISI2.5T PO
[2017-08-23] MEDS ORDERED: ALBUTEROL/IPRATROPIUM 2.5MG/0.5MG, 3 ML NPPB ONE (18:00)
[2017-08-23] MEDS ORDERED: ALBUTEROL/IPRATROPIUM 2.5MG/0.5MG, 3 ML ONE (18:07)
[2017-08-23 18:23] LABS: INTERNATIONAL NORMALIZED RATIO 1.25 (0.93-1.1); PROTHROMBIN TIME 12.9 Seconds (9.6-11.5)
[2017-08-23 18:25] LABS: ALBUMIN 2.3 g/dL (3.4-5.0); ANION GAP 7 mmol/L (5-15); CALCIUM 7.8 mg/dL (8.5-10.1); CHLORIDE 107 mmol/L (98-107); CREATININE 1.71 mg/dL (0.7-1.3)
[2017-08-23 18:30] LABS: TROPONIN I < 0.015 ng/mL (0.000-0.045)
[2017-08-23 18:36] LABS: MEAN CORPUSCULAR HEMOGLOBIN 21.6 pg (27.5-34.5); MEAN CORPUSCULAR VOLUME 69.6 fL (81-97); MEAN PLATELET VOLUME 7.6 fL (7.4-10.4); PLATELET COUNT 529 x10^3/uL (130-400); RED BLOOD COUNT 3.73 x10^6/uL (4.38-5.82); RED CELL DISTRIBUTION WIDTH 29.8 % (9.4-14.8)
[2017-08-23 18:58] LABS: BASOPHILS # (AUTO) 0.07 x10^3/uL (0-0.1); BASOPHILS % (AUTO) 1 % (0-1); EOSINOPHILS # (AUTO) 0.27 x10^3/uL (0-0.4); EOSINOPHILS % (AUTO) 4 % (1-7); LYMPHOCYTES # (AUTO) 1.22 x10^3/uL (1-3.4); LYMPHOCYTES % (AUTO) 16 % (22-44); MONOCYTES # (AUTO) 0.76 x10^3/uL (0.2-0.8); MONOCYTES % (AUTO) 10 % (2-9); NEUTROPHILS # (AUTO) 5.13 x10^3/uL (1.8-6.8); NEUTROPHILS % (AUTO) 69 % (42-75)
[2017-08-23 19:07] LABS: ANISOCYTOSIS 2+; MD MORPH REVIEW ONLY; MICROCYTOSIS 1+; POLYCHROMASIA 1+
[2017-08-23 19:08] LABS: <PLATELET ESTIMATE> INCREASED; <PLT MORPHOLOGY> NORMAL PLT MORPH; ACANTHOCYTES 1+; BITE CELLS 1+; CRENATED 1+; OVALOCYTES 1+; SCHISTOCYTES 1+; TEAR DROPS 1+
[2017-08-23 20:48] VITALS: BP 102/62
== END 2017-08-23 20:51 | disposition home or self-care (01) ==
LOC: ED 20:21
DX: M79.605 Pain in left leg (principal); M79.604 Pain in right leg; I48.91 Unspecified atrial fibrillation; E11.9 Type 2 diabetes mellitus without complications; I50.9 Heart failure, unspecified; J44.9 Chronic obstructive pulmonary disease, unspecified; I11.0 Hypertensive heart disease with heart failure; F20.9 Schizophrenia, unspecified; Z59.0 Homelessness
CPT/HCPCS: 36415; 71045; 80048; 82040; 83880; 84484; 85025; 85610; 85730; 94640; 99285; J7620

== ENCOUNTER 2017-08-24 02:44 | Emergency (ER) | payer MEDICARE ==
[~2017-08-24] VITALS: Ht 180.3 cm; Wt 94.1 kg
[2017-08-24 02:45] VITALS: BP 122/87
[2017-08-24] MEDS ORDERED: FUROSEMIDE 40 MG TABLET ONE (03:30)
[2017-08-24] MEDS ORDERED: FUROSEMIDE 40 MG TABLET PO SCH (03:30)
[2017-08-24] MEDS ORDERED: FUROSEMIDE 40 MG TABLET PO ONE (04:00)
== END 2017-08-24 04:02 | disposition home or self-care (01) ==
LOC: ED 03:35
DX: I11.0 Hypertensive heart disease with heart failure (principal); I50.9 Heart failure, unspecified; I48.91 Unspecified atrial fibrillation; E11.9 Type 2 diabetes mellitus without complications; J44.9 Chronic obstructive pulmonary disease, unspecified; F20.9 Schizophrenia, unspecified; F17.200 Nicotine dependence, unspecified, uncomplicated
CPT/HCPCS: 99282

== ENCOUNTER 2017-08-30 19:23 | Inpatient (IN) | payer MEDICARE ==
[~2017-08-30] VITALS: Ht 180.3 cm; Wt 95.6 kg
[2017-08-30 20:08] LABS: MEAN CORPUSCULAR HEMOGLOBIN 21.5 pg (27.5-34.5); MEAN CORPUSCULAR HGB CONC 30.6 g/dL (33.2-36.2); MEAN CORPUSCULAR VOLUME 70.1 fL (81-97); MEAN PLATELET VOLUME 8.2 fL (7.4-10.4); PLATELET COUNT 364 x10^3/uL (130-400); RED BLOOD COUNT 3.72 x10^6/uL (4.38-5.82); RED CELL DISTRIBUTION WIDTH 28.8 % (9.4-14.8)
[2017-08-30 20:12] LABS: INTERNATIONAL NORMALIZED RATIO 1.17 (0.93-1.1)
[2017-08-30 20:15] LABS: ALANINE AMINOTRANSFERASE 38 U/L (12-78); ALBUMIN 2.3 g/dL (3.4-5.0); ANION GAP 10 mmol/L (5-15); CALCIUM 7.1 mg/dL (8.5-10.1); CHLORIDE 105 mmol/L (98-107); CREATININE 1.48 mg/dL (0.7-1.3)
[2017-08-30 20:19] LABS: ALKALINE PHOSPHATASE 140 U/L (45-117); BILIRUBIN,TOTAL 0.4 mg/dL (0.2-1.0); TROPONIN I < 0.015 ng/mL (0.000-0.045)
[2017-08-30 20:22] LABS: BASOPHILS % (AUTO) 1 % (0-1); EOSINOPHILS # (AUTO) 0.27 x10^3/uL (0-0.4); EOSINOPHILS % (AUTO) 3 % (1-7); LYMPHOCYTES # (AUTO) 1.13 x10^3/uL (1-3.4); LYMPHOCYTES % (AUTO) 14 % (22-44); MONOCYTES # (AUTO) 0.93 x10^3/uL (0.2-0.8); MONOCYTES % (AUTO) 12 % (2-9); NEUTROPHILS # (AUTO) 5.69 x10^3/uL (1.8-6.8); NEUTROPHILS % (AUTO) 70 % (42-75)
[2017-08-30 20:23] LABS: MD MORPH REVIEW ONLY
[2017-08-30 20:24] LABS: ANISOCYTOSIS 2+; HYPOCHROMIA 1+; MICROCYTOSIS 1+
[2017-08-30 20:25] LABS: ACANTHOCYTES 1+; OVALOCYTES 1+; POLYCHROMASIA 1+
[2017-08-30 20:26] LABS: SCHISTOCYTES 1+
[2017-08-30 20:27] LABS: BITE CELLS 1+
[2017-08-30 20:28] LABS: <PLATELET ESTIMATE> ADEQUATE; <PLT MORPHOLOGY> NORMAL PLT MORPH
[2017-08-30] MEDS ORDERED: DILTIAZEM 5 MG/ML, 5ML IVPush ONE (20:30)
[2017-08-30] MEDS ORDERED: SODIUM CHLORIDE FLUSH 10ML SYR IVF ONE (21:00)
[2017-08-30] MEDS ORDERED: VERAPAMIL 2.5 MG/ML, 2ML ONE (21:07)
[2017-08-30] MEDS ORDERED: VERAPAMIL 2.5 MG/ML, 2ML IVPush ONE (21:30)
[2017-08-30] MEDS ORDERED: SODIUM CHLORIDE FLUSH 10ML SYR IVF PRN (22:30)
[2017-08-30] MEDS ORDERED: OMNIPAQUE 350 MG/ML, 100ML BOTTLE ONE (23:00)
[2017-08-30] MEDS ORDERED: ONDANSETRON 2MG/ML, 2ML IVPush PRN (23:30)
[2017-08-30] MEDS ORDERED: DOCUSATE 100 MG CAPSULE PO PRN (23:30)
[2017-08-30] MEDS ORDERED: LABETALOL 5MG/ML, 20ML IVPush PRN (23:30)
[2017-08-30] MEDS ORDERED: hydrALAzine 20 MG/ML, 1ML IVPush PRN (23:30)
[2017-08-30] MEDS ORDERED: PROMETHAZINE 25 MG/ML, 1ML IM PRN (23:30)
[2017-08-30] MEDS ORDERED: ONDANSETRON ODT 4 MG PO PRN (23:30)
[2017-08-30] MEDS ORDERED: OXYcodone IR 5MG TABLET PO PRN (23:30)
[2017-08-30] MEDS ORDERED: morphine SULFATE 10 MG/ML, 1ML IVPush PRN (23:30)
[2017-08-30] MEDS ORDERED: POLYETHYLENE GLYCOL 17 GM PACKET PO PRN (23:30)
[2017-08-30] MEDS ORDERED: ENOXAPARIN 40 MG/0.4 ML SQ SCH (23:30)
[2017-08-30] MEDS ORDERED: BISACODYL 10 MG SUPP PR PRN (23:30)
[2017-08-30] MEDS ORDERED: ACETAMINOPHEN 325 MG TABLET PO PRN (23:30)
[2017-08-31] VITALS: BP 130/92
[2017-08-31] MEDS: METOPROLOL SUCCINATE 25 MG TAB.ER.24H PO SCH ×2 (00:03→06:40)
[2017-08-31] MEDS: ASPIRIN 325 MG TABLET EC PO SCH ×2 (00:03→06:40)
[2017-08-31] MEDS ORDERED: ALBUTEROL/IPRATROPIUM 2.5MG/0.5MG, 3 ML NPPB PRN (00:30)
[2017-08-31 00:53] LABS: ALANINE AMINOTRANSFERASE 36 U/L (12-78); ALBUMIN 2.3 g/dL (3.4-5.0); ANION GAP 9 mmol/L (5-15); CALCIUM 7.3 mg/dL (8.5-10.1); CHLORIDE 105 mmol/L (98-107); CREATININE 1.41 mg/dL (0.7-1.3)
[2017-08-31 00:56] LABS: ALKALINE PHOSPHATASE 134 U/L (45-117); BILIRUBIN,TOTAL 0.5 mg/dL (0.2-1.0); TOTAL PROTEIN 6.7 g/dL (6.4-8.2)
[2017-08-31 02:12] LABS: FREE T4 (FREE THYROXINE) 1.17 ng/dL (0.76-1.46); THYROID STIMULATING HORMONE 6.54 mIU/L (0.358-3.740)
[2017-08-31 02:44] VITALS: BP 121/87
[2017-08-31 05:59] LABS: MEAN CORPUSCULAR HGB CONC 30.1 g/dL (33.2-36.2); MEAN CORPUSCULAR VOLUME 69.8 fL (81-97); MEAN PLATELET VOLUME 8.1 fL (7.4-10.4); PLATELET COUNT 335 x10^3/uL (130-400); RED BLOOD COUNT 3.73 x10^6/uL (4.38-5.82); RED CELL DISTRIBUTION WIDTH 28.6 % (9.4-14.8)
[2017-08-31 06:09] LABS: ALBUMIN 2.2 g/dL (3.4-5.0); ANION GAP 9 mmol/L (5-15); CALCIUM 7.5 mg/dL (8.5-10.1); CHLORIDE 105 mmol/L (98-107)
[2017-08-31 06:14] LABS: ALANINE AMINOTRANSFERASE 36 U/L (12-78); ALKALINE PHOSPHATASE 128 U/L (45-117); BILIRUBIN,TOTAL 0.6 mg/dL (0.2-1.0); CHOL/HDL RATIO 3.4; CHOLESTEROL, TOTAL 78 mg/dL (140-239); CREATININE 1.41 mg/dL (0.7-1.3); HDL CHOL % 29 % (26-37); HDL CHOLESTEROL (DIRECT) 23 mg/dL (40-60); LDL CHOLESTEROL,CALCULATED 47 mg/dL (54-169); TOTAL PROTEIN 6.7 g/dL (6.4-8.2); TRIGLYCERIDES 41 mg/dL (50-200); VLDL CHOLESTEROL 8 mg/dL (0-25)
[2017-08-31 06:18] LABS: BASOPHILS # (AUTO) 0.03 x10^3/uL (0-0.1); BASOPHILS % (AUTO) 1 % (0-1); EOSINOPHILS % (AUTO) 3 % (1-7); LYMPHOCYTES # (AUTO) 1.06 x10^3/uL (1-3.4); LYMPHOCYTES % (AUTO) 15 % (22-44); MD SCAN; MONOCYTES % (AUTO) 10 % (2-9); NEUTROPHILS # (AUTO) 4.89 x10^3/uL (1.8-6.8); NEUTROPHILS % (AUTO) 71 % (42-75)
[2017-08-31 06:32] LABS: AMPHETAMINE SCREEN, URINE Negative (Negative); BARBITURATE SCREEN, URINE Negative (Negative)
[2017-08-31 06:34] LABS: BENZODIAZEPINE SCREEN, URINE Negative (Negative); CANNABINOID SCREEN, URINE Negative (Negative); COCAINE SCREEN, URINE Negative (Negative); METHADONE SCREEN, URINE Negative (Negative); OPIATE SCREEN, URINE Negative (Negative)
[2017-08-31] MEDS ORDERED: HEPARIN 5,000 UNITS/ML, 1ML SQ SCH (07:30)
[2017-08-31] MEDS ORDERED: FUROSEMIDE 20 MG/2 ML IV SCH (07:30)
[2017-08-31 07:34] VITALS: BP 93/54
[2017-08-31] MEDS ORDERED: LISINOPRIL 5 MG TABLET PO SCH (09:00)
[2017-08-31] MEDS ORDERED: FLUTICASONE/VILANTEROL 200-25MCG/INH INH SCH (09:00)
[2017-08-31 09:31] LABS: MICROSCOPIC AUTO
[2017-08-31 09:32] LABS: CULTURE INDICATED? NO
[2017-09-01 20:00] LABS: HEMOGLOBIN A1C 6.3 % (4.2-6.3)
== END 2017-08-31 09:00 | disposition left against medical advice (07) | DRG 291 ==
LOC: ED 21:00 → EDIP 22:21 → 5SO 23:17
PROVIDERS: ADMIT Internal Medicine; ATTEND Internal Medicine
DX: I13.0 Hypertensive heart and chronic kidney disease with heart failure and stage 1 through stage 4 chronic kidney disease, or unspecified chronic kidney disease (principal); I50.23 Acute on chronic systolic (congestive) heart failure; S12.600A Unspecified displaced fracture of seventh cervical vertebra, initial encounter for closed fracture; S12.500A Unspecified displaced fracture of sixth cervical vertebra, initial encounter for closed fracture; E44.0 Moderate protein-calorie malnutrition; D68.59 Other primary thrombophilia; E11.22 Type 2 diabetes mellitus with diabetic chronic kidney disease; N18.3 Chronic kidney disease, stage 3 (moderate); I34.0 Nonrheumatic mitral (valve) insufficiency; I48.0 Paroxysmal atrial fibrillation; Z91.14 Patient's other noncompliance with medication regimen; D53.9 Nutritional anemia, unspecified; D50.9 Iron deficiency anemia, unspecified; F20.9 Schizophrenia, unspecified; I27.29 Other secondary pulmonary hypertension; I48.2 Chronic atrial fibrillation; Z59.0 Homelessness; J44.9 Chronic obstructive pulmonary disease, unspecified; I50.82 Biventricular heart failure; X58.XXXA Exposure to other specified factors, initial encounter; Y93.89 Activity, other specified; Y92.89 Other specified places as the place of occurrence of the external cause; Y99.8 Other external cause status; F17.200 Nicotine dependence, unspecified, uncomplicated; Z53.21 Procedure and treatment not carried out due to patient leaving prior to being seen by health care provider
CPT/HCPCS: 36415; 71045; 71275; 80053; 80061; 80307; 81001; 83036; 83735; 83880; 84439; 84443; 84484; 85025; 85379; 85610; 85730; 93005; 96374; J1650; Q9967

== ENCOUNTER 2017-11-07 05:02 | Inpatient (IN) | payer MEDICARE, MEDICAID ==
[~2017-11-07] VITALS: Ht 180.3 cm; Wt 98.1 kg
[2017-11-07] MEDS ORDERED: CEFTRIAXONE 1,000 MG in SODIUM CHLORIDE 0.9% 50 ML IVPB ONE (05:30)
[2017-11-07] MEDS ORDERED: SODIUM CHLORIDE FLUSH 10ML SYR IVF ONE (05:30)
[2017-11-07] MEDS ORDERED: CEFTRIAXONE PMX 1GM/50ML 50 ML ONE (05:57)
[2017-11-07 06:12] LABS: BASOPHILS % (AUTO) 0 % (0-1); EOSINOPHILS # (AUTO) 0.21 x10^3/uL (0-0.4); EOSINOPHILS % (AUTO) 2 % (1-7); LYMPHOCYTES # (AUTO) 1.63 x10^3/uL (1-3.4); LYMPHOCYTES % (AUTO) 19 % (22-44); MD NO; MEAN CORPUSCULAR HEMOGLOBIN 21.3 pg (27.5-34.5); MEAN CORPUSCULAR HGB CONC 30.9 g/dL (33.2-36.2); MEAN CORPUSCULAR VOLUME 69.1 fL (81-97); MEAN PLATELET VOLUME 8.2 fL (7.4-10.4); MONOCYTES # (AUTO) 0.85 x10^3/uL (0.2-0.8); MONOCYTES % (AUTO) 10 % (2-9); NEUTROPHILS # (AUTO) 5.97 x10^3/uL (1.8-6.8); NEUTROPHILS % (AUTO) 69 % (42-75); PLATELET COUNT 273 x10^3/uL (130-400); RED BLOOD COUNT 4.13 x10^6/uL (4.38-5.82); RED CELL DISTRIBUTION WIDTH 24.7 % (9.4-14.8)
[2017-11-07 06:20] LABS: ALANINE AMINOTRANSFERASE 89 U/L (12-78); ANION GAP 11 mmol/L (5-15); CALCIUM 7.9 mg/dL (8.5-10.1); CHLORIDE 104 mmol/L (98-107); CREATININE 1.49 mg/dL (0.7-1.3)
[2017-11-07 06:22] LABS: ALKALINE PHOSPHATASE 153 U/L (45-117); TOTAL PROTEIN 7.4 g/dL (6.4-8.2)
[2017-11-07 09:47] VITALS: BP 112/67
[2017-11-07 13:19] VITALS: BP 101/67
[2017-11-07] MEDS: CARVEDILOL 3.125 MG TABLET PO SCH (17:54)
[2017-11-07 21:05] VITALS: BP 96/61
[2017-11-08 03:58] VITALS: BP 124/74
[2017-11-08 05:45] LABS: % IRON SATURATION 3 % (20-55); IRON LEVEL 15 mcg/dL (65-175); TOTAL IRON BINDING CAPACITY 449 mcg/dL (250-450)
[2017-11-08 07:03] VITALS: BP 113/75
[2017-11-08] MEDS: LEVOTHYROXINE 25 MCG TABLET PO SCH (07:06)
[2017-11-08] MEDS: CARVEDILOL 3.125 MG TABLET PO SCH ×2 (07:06→18:02)
[2017-11-08] MEDS ORDERED: DIGOXIN 0.25 MG/ML, 2ML IVPush ONE (07:30)
[2017-11-08 07:50] VITALS: BP 131/67
[2017-11-08] MEDS: FUROSEMIDE 20 MG/2 ML IV SCH ×2 (07:54→18:03)
[2017-11-08] MEDS: POTASSIUM CHLORIDE 20 MEQ PACKET PO SCH (07:55)
[2017-11-08] MEDS: LISINOPRIL 5 MG TABLET PO SCH (07:55)
[2017-11-08] MEDS: APIXABAN 5 MG TABLET PO SCH ×2 (07:56→21:38)
[2017-11-08 13:55] VITALS: BP 98/62
[2017-11-08] MEDS ORDERED: RIVAROXABAN 20 MG TABLET PO SCH (17:00)
[2017-11-08] MEDS ORDERED: LORazepam 2 MG/ML, 1ML IVPush ONE (19:00)
[2017-11-08 21:39] VITALS: BP 108/73
[2017-11-09] MEDS ORDERED: LORazepam 2 MG/ML, 1ML IVPush ONE (00:30)
[2017-11-09 04:00] VITALS: BP 120/84
[2017-11-09] MEDS: LEVOTHYROXINE 25 MCG TABLET PO SCH (05:49)
[2017-11-09] MEDS: CARVEDILOL 3.125 MG TABLET PO SCH ×2 (05:49→18:03)
[2017-11-09 07:22] VITALS: BP 106/65
[2017-11-09] MEDS: POTASSIUM CHLORIDE 20 MEQ PACKET PO SCH (08:53)
[2017-11-09] MEDS: DIGOXIN 0.125 MG TABLET PO SCH (08:54)
[2017-11-09] MEDS: LISINOPRIL 5 MG TABLET PO SCH (08:54)
[2017-11-09] MEDS: APIXABAN 5 MG TABLET PO SCH ×2 (08:54→20:18)
[2017-11-09] MEDS: FUROSEMIDE 20 MG/2 ML IV SCH ×2 (08:54→18:03)
[2017-11-09] MEDS: FERROUS SULFATE 325 MG TABLET PO SCH ×3 (08:54→18:03)
[2017-11-09 09:40] LABS: ANION GAP 7 mmol/L (5-15); CALCIUM 7.6 mg/dL (8.5-10.1); CHLORIDE 107 mmol/L (98-107); CREATININE 1.28 mg/dL (0.7-1.3)
[2017-11-09 10:50] LABS: CULTURE INDICATED? NO; MICROSCOPIC NOT IND
[2017-11-09 11:03] LABS: AMPHETAMINE SCREEN, URINE Negative (Negative); BARBITURATE SCREEN, URINE Negative (Negative); BENZODIAZEPINE SCREEN, URINE Negative (Negative); CANNABINOID SCREEN, URINE Negative (Negative); COCAINE SCREEN, URINE Negative (Negative); METHADONE SCREEN, URINE Negative (Negative); OPIATE SCREEN, URINE Negative (Negative)
[2017-11-09 12:11] LABS: CLOSTRIDIUM DIFFICILE ANTIGEN NEGATIVE; CLOSTRIDIUM DIFFICILE TOXIN NEGATIVE (Negative)
[2017-11-09 13:29] VITALS: BP 100/59
[2017-11-09 20:30] VITALS: BP 131/82
[2017-11-10] MEDS ORDERED: MAGNESIUM SULFATE PMX 4GM/100M 100 ML IV ONE
[2017-11-10] MEDS ORDERED: MAGNESIUM SULFATE 4 GM in SODIUM CHLORIDE 0.9% 100 ML IV ONE
[2017-11-10 02:05] VITALS: BP 120/80
[2017-11-10 05:53] LABS: ANION GAP 8 mmol/L (5-15); CALCIUM 8.2 mg/dL (8.5-10.1); CHLORIDE 106 mmol/L (98-107)
[2017-11-10] MEDS: CARVEDILOL 3.125 MG TABLET PO SCH (05:56)
[2017-11-10] MEDS: LEVOTHYROXINE 25 MCG TABLET PO SCH (05:56)
[2017-11-10 06:13] LABS: CREATININE 1.12 mg/dL (0.7-1.3)
[2017-11-10 06:46] VITALS: BP 122/67
[2017-11-10] MEDS: FERROUS SULFATE 325 MG TABLET PO SCH (09:32)
[2017-11-10] MEDS: FUROSEMIDE 20 MG/2 ML IV SCH (09:33)
[2017-11-10] MEDS: DIGOXIN 0.125 MG TABLET PO SCH (09:33)
[2017-11-10] MEDS: POTASSIUM CHLORIDE 20 MEQ PACKET PO SCH (09:33)
[2017-11-10] MEDS: APIXABAN 5 MG TABLET PO SCH (09:33)
[2017-11-10] MEDS: LISINOPRIL 5 MG TABLET PO SCH (09:33)
== END 2017-11-10 11:28 | disposition left against medical advice (07) | DRG 871 ==
LOC: ED 07:12 → EDIP 07:13 → 5SO 09:21
PROVIDERS: ADMIT Internal Medicine; ATTEND Internal Medicine
DX: A41.9 Sepsis, unspecified organism (principal); I50.43 Acute on chronic combined systolic (congestive) and diastolic (congestive) heart failure; J15.9 Unspecified bacterial pneumonia; D68.69 Other thrombophilia; I13.0 Hypertensive heart and chronic kidney disease with heart failure and stage 1 through stage 4 chronic kidney disease, or unspecified chronic kidney disease; J44.0 Chronic obstructive pulmonary disease with (acute) lower respiratory infection; I48.91 Unspecified atrial fibrillation; E66.9 Obesity, unspecified; E03.9 Hypothyroidism, unspecified; D50.9 Iron deficiency anemia, unspecified; I48.2 Chronic atrial fibrillation; I34.0 Nonrheumatic mitral (valve) insufficiency; N50.811 Right testicular pain; Z53.21 Procedure and treatment not carried out due to patient leaving prior to being seen by health care provider; F17.200 Nicotine dependence, unspecified, uncomplicated; N18.3 Chronic kidney disease, stage 3 (moderate); Z91.14 Patient's other noncompliance with medication regimen; Z59.0 Homelessness; Z68.30 Body mass index [BMI] 30.0-30.9, adult
CPT/HCPCS: 36415; 71045; 76870; 80048; 80053; 80162; 80307; 81003; 83540; 83550; 83605; 83735; 83880; 84100; 85025; 87040; 87324; 89055; 93005; 96365; 99291; J0696; J1160; J1940; J2060; J3475

== ENCOUNTER 2017-11-11 07:28 | Inpatient (IN) | payer MEDICAID, MEDICARE ==
[~2017-11-11] VITALS: Ht 180.3 cm; Wt 95.5 kg
[2017-11-11 08:54] LABS: MEAN CORPUSCULAR HEMOGLOBIN 20.8 pg (27.5-34.5); MEAN CORPUSCULAR HGB CONC 30.3 g/dL (33.2-36.2); MEAN CORPUSCULAR VOLUME 68.7 fL (81-97); MEAN PLATELET VOLUME 8.3 fL (7.4-10.4); PLATELET COUNT 288 x10^3/uL (130-400); RED BLOOD COUNT 3.93 x10^6/uL (4.38-5.82)
[2017-11-11 09:01] LABS: ALANINE AMINOTRANSFERASE 50 U/L (12-78); ALBUMIN 2.6 g/dL (3.4-5.0); ANION GAP 9 mmol/L (5-15); CALCIUM 7.5 mg/dL (8.5-10.1); CHLORIDE 104 mmol/L (98-107)
[2017-11-11 09:07] LABS: ALKALINE PHOSPHATASE 136 U/L (45-117); BILIRUBIN,TOTAL 0.6 mg/dL (0.2-1.0); TOTAL PROTEIN 7.2 g/dL (6.4-8.2)
[2017-11-11 09:21] LABS: BASOPHILS # (AUTO) 0.03 x10^3/uL (0-0.1); BASOPHILS % (AUTO) 0 % (0-1); EOSINOPHILS # (AUTO) 0.25 x10^3/uL (0-0.4); EOSINOPHILS % (AUTO) 3 % (1-7); LYMPHOCYTES # (AUTO) 1.29 x10^3/uL (1-3.4); LYMPHOCYTES % (AUTO) 16 % (22-44); MD MORPH REVIEW ONLY; MONOCYTES # (AUTO) 0.54 x10^3/uL (0.2-0.8); MONOCYTES % (AUTO) 7 % (2-9); NEUTROPHILS # (AUTO) 5.78 x10^3/uL (1.8-6.8); NEUTROPHILS % (AUTO) 73 % (42-75)
[2017-11-11 09:30] LABS: ACANTHOCYTES 1+; ANISOCYTOSIS 2+; HYPOCHROMIA 1+; MICROCYTOSIS 2+; OVALOCYTES 1+; POLYCHROMASIA 1+; SCHISTOCYTES 1+
[2017-11-11 09:31] LABS: <PLATELET ESTIMATE> ADEQUATE; <PLT MORPHOLOGY> NORMAL PLT MORPH
[2017-11-11] MEDS ORDERED: ASPIRIN 81 MG TABLET CHEW ONE (10:09)
[2017-11-11] MEDS ORDERED: FUROSEMIDE 40 MG/4 ML ONE (10:09)
[2017-11-11] MEDS ORDERED: ASPIRIN 81 MG TABLET CHEW PO ONE (10:30)
[2017-11-11] MEDS ORDERED: FUROSEMIDE 40 MG/4 ML IV ONE (10:30)
[2017-11-11] MEDS ORDERED: SODIUM CHLORIDE FLUSH 10ML SYR IVF ONE (11:00)
[2017-11-11 11:08] VITALS: BP 126/84
[2017-11-11] MEDS ORDERED: NITROGLYCERIN 0.4 MG BOTTLE (25 TABS) SL PRN (12:00)
[2017-11-11] MEDS ORDERED: hydrALAzine 20 MG/ML, 1ML IVPush PRN (12:00)
[2017-11-11] MEDS ORDERED: ENOXAPARIN 40 MG/0.4 ML SQ SCH (12:00)
[2017-11-11] MEDS ORDERED: TRAZODONE 50MG TABLET PO PRN (12:00)
[2017-11-11] MEDS ORDERED: ONDANSETRON 2MG/ML, 2ML IVPush PRN (12:00)
[2017-11-11] MEDS ORDERED: ACETAMINOPHEN 325 MG TABLET PO PRN (12:00)
[2017-11-11] MEDS ORDERED: DOCUSATE 100 MG CAPSULE PO PRN (12:00)
[2017-11-11] MEDS ORDERED: GUAIFENESIN/COD200MG-20MG/10ML LIQUID PO PRN (12:30)
[2017-11-11 12:42] LABS: MICROSCOPIC NOT IND
[2017-11-11 12:44] LABS: CULTURE INDICATED? NO
[2017-11-11] MEDS: FERROUS SULFATE 325 MG TABLET PO SCH ×2 (12:51→18:39)
[2017-11-11] MEDS: LEVOTHYROXINE 25 MCG TABLET PO SCH (12:51)
[2017-11-11] MEDS: APIXABAN 5 MG TABLET PO SCH ×2 (12:51→19:55)
[2017-11-11] MEDS: CARVEDILOL 3.125 MG TABLET PO SCH ×2 (12:51→18:40)
[2017-11-11] MEDS: POTASSIUM CHLORIDE 20 MEQ TAB.ER.PRT PO SCH (12:52)
[2017-11-11] MEDS: LISINOPRIL 5 MG TABLET PO SCH (12:52)
[2017-11-11] MEDS: DIGOXIN 0.125 MG TABLET PO SCH (12:52)
[2017-11-11 15:51] LABS: TROPONIN I 0.564 ng/mL (0.000-0.045)
[2017-11-11 16:03] VITALS: BP 114/61
[2017-11-11] MEDS: FUROSEMIDE 40 MG/4 ML IV SCH (18:39)
[2017-11-11 19:18] VITALS: BP 111/75
[2017-11-11 19:56] VITALS: BP 124/78
[2017-11-11 19:57] VITALS: BP_SYST 114; BP_SYST 121; BP_DIAS 69; BP_DIAS 71
[2017-11-11] MEDS ORDERED: DIPHENHYDRAMINE 25 MG CAPSULE PO PRN (20:00)
[2017-11-11 21:58] LABS: TROPONIN I 0.508 ng/mL (0.000-0.045)
[2017-11-12 00:12] VITALS: BP 125/67
[2017-11-12 05:18] LABS: MEAN CORPUSCULAR HEMOGLOBIN 21.1 pg (27.5-34.5); MEAN CORPUSCULAR HGB CONC 30.6 g/dL (33.2-36.2); MEAN CORPUSCULAR VOLUME 68.9 fL (81-97); MEAN PLATELET VOLUME 8.2 fL (7.4-10.4); PLATELET COUNT 296 x10^3/uL (130-400); RED BLOOD COUNT 3.61 x10^6/uL (4.38-5.82); RED CELL DISTRIBUTION WIDTH 24.6 % (9.4-14.8)
[2017-11-12 05:27] LABS: CHLORIDE 104 mmol/L (98-107)
[2017-11-12 05:44] LABS: BASOPHILS # (AUTO) 0.03 x10^3/uL (0-0.1); BASOPHILS % (AUTO) 0 % (0-1); EOSINOPHILS # (AUTO) 0.36 x10^3/uL (0-0.4); EOSINOPHILS % (AUTO) 5 % (1-7); LYMPHOCYTES # (AUTO) 1.23 x10^3/uL (1-3.4); LYMPHOCYTES % (AUTO) 17 % (22-44); MD MORPH REVIEW ONLY; MONOCYTES # (AUTO) 0.62 x10^3/uL (0.2-0.8); MONOCYTES % (AUTO) 8 % (2-9); NEUTROPHILS # (AUTO) 5.19 x10^3/uL (1.8-6.8); NEUTROPHILS % (AUTO) 70 % (42-75)
[2017-11-12 05:46] LABS: ANISOCYTOSIS 2+; HYPOCHROMIA 1+; MICROCYTOSIS 2+; OVALOCYTES 1+; SCHISTOCYTES 1+
[2017-11-12 05:47] LABS: <PLATELET ESTIMATE> ADEQUATE; <PLT MORPHOLOGY> NORMAL PLT MORPH; ACANTHOCYTES 1+; POLYCHROMASIA 1+
[2017-11-12 05:49] LABS: ANION GAP 11 mmol/L (5-15); CHOL/HDL RATIO 2.7; CHOLESTEROL, TOTAL 64 mg/dL (140-239); CREATININE 1.36 mg/dL (0.7-1.3); HDL CHOL % 38 % (26-37); HDL CHOLESTEROL (DIRECT) 24 mg/dL (40-60); LDL CHOLESTEROL,CALCULATED 29 mg/dL (54-169); LDL/HDL RATIO 1.2 (0.5-3.0); TRIGLYCERIDES 57 mg/dL (50-200); VLDL CHOLESTEROL 11 mg/dL (0-25)
[2017-11-12] MEDS ORDERED: ASPIRIN 325 MG TABLET EC PO SCH (06:00)
[2017-11-12] MEDS: LEVOTHYROXINE 25 MCG TABLET PO SCH (06:13)
[2017-11-12] MEDS: CARVEDILOL 3.125 MG TABLET PO SCH (06:13)
[2017-11-12 06:16] VITALS: BP 102/65
[2017-11-12 08:27] VITALS: BP 115/73
[2017-11-12] MEDS: POTASSIUM CHLORIDE 20 MEQ TAB.ER.PRT PO SCH (08:54)
[2017-11-12] MEDS: FERROUS SULFATE 325 MG TABLET PO SCH ×2 (08:54→13:42)
[2017-11-12] MEDS: APIXABAN 5 MG TABLET PO SCH (08:54)
[2017-11-12] MEDS: DIGOXIN 0.125 MG TABLET PO SCH (08:54)
[2017-11-12] MEDS: FUROSEMIDE 40 MG/4 ML IV SCH (08:54)
[2017-11-12] MEDS: LISINOPRIL 5 MG TABLET PO SCH (08:54)
[2017-11-12 13:23] VITALS: BP 136/73
== END 2017-11-12 16:22 | disposition left against medical advice (07) | DRG 291 ==
LOC: ED 08:01 → EDIP 09:14 → 5SO 11:07
PROVIDERS: ADMIT Internal Medicine; ATTEND Internal Medicine
DX: I13.0 Hypertensive heart and chronic kidney disease with heart failure and stage 1 through stage 4 chronic kidney disease, or unspecified chronic kidney disease (principal); I50.41 Acute combined systolic (congestive) and diastolic (congestive) heart failure; D68.69 Other thrombophilia; E03.9 Hypothyroidism, unspecified; E11.22 Type 2 diabetes mellitus with diabetic chronic kidney disease; E11.40 Type 2 diabetes mellitus with diabetic neuropathy, unspecified; D50.9 Iron deficiency anemia, unspecified; E66.9 Obesity, unspecified; F20.9 Schizophrenia, unspecified; I48.91 Unspecified atrial fibrillation; I77.810 Thoracic aortic ectasia; J44.9 Chronic obstructive pulmonary disease, unspecified; N18.3 Chronic kidney disease, stage 3 (moderate); N43.3 Hydrocele, unspecified; N45.1 Epididymitis; N48.89 Other specified disorders of penis; Z53.21 Procedure and treatment not carried out due to patient leaving prior to being seen by health care provider; N50.89 Other specified disorders of the male genital organs; Z91.14 Patient's other noncompliance with medication regimen; Z87.891 Personal history of nicotine dependence; Z87.01 Personal history of pneumonia (recurrent); Z59.0 Homelessness; Z68.29 Body mass index [BMI] 29.0-29.9, adult
CPT/HCPCS: 36415; 71045; 76870; 80048; 80053; 80061; 81003; 83735; 83880; 84100; 84443; 84484; 85025; 93005; 96374; J1940; Q0163

== ENCOUNTER 2017-11-21 17:01 | Inpatient (IN) | payer MEDICARE ==
[~2017-11-21] VITALS: Ht 180.3 cm; Wt 103.4 kg
[2017-11-21] MEDS ORDERED: SODIUM CHLORIDE FLUSH 10ML SYR IVF ONE (18:30)
[2017-11-21] MEDS ORDERED: METOPROLOL 1 MG/ML, 5ML IVPush ONE (18:30)
[2017-11-21] MEDS ORDERED: DILTIAZEM 125 MG in DEXTROSE 5% 100 ML IV SCH (18:38)
[2017-11-21 18:54] LABS: MD YES; MEAN CORPUSCULAR HEMOGLOBIN 21.8 pg (27.5-34.5); MEAN CORPUSCULAR HGB CONC 30.8 g/dL (33.2-36.2); MEAN CORPUSCULAR VOLUME 70.7 fL (81-97); MEAN PLATELET VOLUME 7.8 fL (7.4-10.4); PLATELET COUNT 471 x10^3/uL (130-400); RED BLOOD COUNT 3.73 x10^6/uL (4.38-5.82); RED CELL DISTRIBUTION WIDTH 27.2 % (9.4-14.8)
[2017-11-21 18:57] LABS: INTERNATIONAL NORMALIZED RATIO 1.23 (0.93-1.1); PROTHROMBIN TIME 12.6 Seconds (9.6-11.5)
[2017-11-21] MEDS ORDERED: DILTIAZEM 5 MG/ML, 10ML IV ONE (19:00)
[2017-11-21 19:01] LABS: ALANINE AMINOTRANSFERASE 23 U/L (12-78); ALBUMIN 2.8 g/dL (3.4-5.0); ANION GAP 11 mmol/L (5-15); CALCIUM 7.9 mg/dL (8.5-10.1); CHLORIDE 106 mmol/L (98-107); CREATININE 1.29 mg/dL (0.7-1.3)
[2017-11-21 19:09] LABS: ALKALINE PHOSPHATASE 133 U/L (45-117); BILIRUBIN,TOTAL 0.6 mg/dL (0.2-1.0); TOTAL PROTEIN 7.5 g/dL (6.4-8.2); TROPONIN I 0.028 ng/mL (0.000-0.045)
[2017-11-21 19:18] LABS: ANISOCYTOSIS 2+; EOS#(MANUAL) 0.32 x10^3/uL (0.0-0.4); EOS% (MANUAL) 5 % (1-7); LYMPH#(MANUAL) 1.92 x10^3/uL (1-3.4); LYMPHS% (MANUAL) 30 % (22-44); MONOS#(MANUAL) 0.77 x10^3/uL (0.3-2.7); MONOS% (MANUAL) 12 % (2-9); REACTIVE LYMPHS # (MANUAL) 0.32 x10^3/uL (0-0); REACTIVE LYMPHS % (MANUAL) 5 % (0-0); SEG#(MANUAL) 3.07 x10^3/uL (1.8-6.8); SEGS% (MANUAL) 48 % (42-75)
[2017-11-21 19:19] LABS: HYPOCHROMIA 1+; OVALOCYTES 1+; POLYCHROMASIA 1+; SCHISTOCYTES 1+; TARGET CELLS 1+
[2017-11-21 19:20] LABS: <PLATELET ESTIMATE> ADEQUATE; <PLT MORPHOLOGY> NORMAL PLT MORPH
[2017-11-21] MEDS ORDERED: SODIUM CHLORIDE FLUSH 10ML SYR IVF PRN (20:00)
[2017-11-21] MEDS ORDERED: LABETALOL 5MG/ML, 20ML IVPush PRN (21:30)
[2017-11-21] MEDS ORDERED: morphine SULFATE 10 MG/ML, 1ML IVPush PRN (21:30)
[2017-11-21] MEDS ORDERED: ACETAMINOPHEN 325 MG TABLET PO PRN (21:30)
[2017-11-21] MEDS ORDERED: POLYETHYLENE GLYCOL 17 GM PACKET PO PRN (21:30)
[2017-11-21] MEDS ORDERED: DOCUSATE 100 MG CAPSULE PO PRN (21:30)
[2017-11-21] MEDS ORDERED: FUROSEMIDE 20 MG/2 ML IV SCH (21:30)
[2017-11-21] MEDS ORDERED: ONDANSETRON ODT 4 MG PO PRN (21:30)
[2017-11-21] MEDS ORDERED: BACLOFEN 10 MG TABLET PO PRN (21:30)
[2017-11-21] MEDS ORDERED: ONDANSETRON 2MG/ML, 2ML IVPush PRN (21:30)
[2017-11-21] MEDS ORDERED: hydrALAzine 20 MG/ML, 1ML IVPush PRN (21:30)
[2017-11-21] MEDS ORDERED: OXYcodone IR 5MG TABLET PO PRN (21:30)
[2017-11-21] MEDS ORDERED: BISACODYL 10 MG SUPP PR PRN (21:30)
[2017-11-21] MEDS ORDERED: PROMETHAZINE 25 MG/ML, 1ML IM PRN (21:30)
[2017-11-21] MEDS ORDERED: GABAPENTIN 300 MG CAPSULE PO PRN (21:30)
[2017-11-21] MEDS: HEPARIN 5,000 UNITS/ML, 1ML SQ SCH (22:40)
[2017-11-21 22:42] LABS: FREE T4 (FREE THYROXINE) 0.92 ng/dL (0.76-1.46); THYROID STIMULATING HORMONE 10.3 mIU/L (0.358-3.740)
[2017-11-21 23:00] VITALS: BP 116/72
[2017-11-22] MEDS ORDERED: ALBUTEROL SULFATE 2.5 MG/3 ML NPPB PRN
[2017-11-22 01:46] VITALS: BP 119/72
[2017-11-22 05:46] LABS: MEAN CORPUSCULAR HEMOGLOBIN 21.2 pg (27.5-34.5); MEAN CORPUSCULAR HGB CONC 30.2 g/dL (33.2-36.2); MEAN CORPUSCULAR VOLUME 70.3 fL (81-97); MEAN PLATELET VOLUME 7.8 fL (7.4-10.4); PLATELET COUNT 474 x10^3/uL (130-400); RED BLOOD COUNT 3.91 x10^6/uL (4.38-5.82)
[2017-11-22 06:00] LABS: ALANINE AMINOTRANSFERASE 22 U/L (12-78); ALBUMIN 2.7 g/dL (3.4-5.0); ANION GAP 10 mmol/L (5-15); CALCIUM 8.2 mg/dL (8.5-10.1); CHLORIDE 107 mmol/L (98-107); CREATININE 1.54 mg/dL (0.7-1.3)
[2017-11-22 06:02] LABS: ALKALINE PHOSPHATASE 132 U/L (45-117); TOTAL PROTEIN 7.7 g/dL (6.4-8.2)
[2017-11-22 06:04] LABS: MD YES
[2017-11-22 06:06] LABS: BASOS#(MANUAL) 0.07 x10^3/uL (0-0.1); BASOS% (MANUAL) 1 % (0-1); EOS#(MANUAL) 0.21 x10^3/uL (0.0-0.4); EOS% (MANUAL) 3 % (1-7); LYMPH#(MANUAL) 0.97 x10^3/uL (1-3.4); LYMPHS% (MANUAL) 14 % (22-44); METAMYELOCYTES# (MANUAL) 0.07 x10^3/uL (0-0); METAMYELOCYTES% (MANUAL) 1 % (0-1); MONOS#(MANUAL) 0.14 x10^3/uL (0.3-2.7); MONOS% (MANUAL) 2 % (2-9); SEG#(MANUAL) 5.45 x10^3/uL (1.8-6.8); SEGS% (MANUAL) 79 % (42-75)
[2017-11-22] MEDS: HEPARIN 5,000 UNITS/ML, 1ML SQ SCH ×2 (06:06→13:46)
[2017-11-22 06:07] LABS: ANISOCYTOSIS 2+; HYPOCHROMIA 1+; OVALOCYTES 1+; POLYCHROMASIA 1+; SCHISTOCYTES 1+
[2017-11-22 06:08] LABS: <PLATELET ESTIMATE> INCREASED; LARGE PLATELETS 1+
[2017-11-22 07:40] VITALS: BP 123/68
[2017-11-22 09:11] VITALS: BP 112/78
[2017-11-22] MEDS ORDERED: FUROSEMIDE 20 MG/2 ML IV SCH (11:00)
[2017-11-22] MEDS ORDERED: METOPROLOL SUCCINATE 25 MG TAB.ER.24H PO SCH (11:30)
[2017-11-22] MEDS ORDERED: ASPIRIN 325 MG TABLET EC PO SCH (11:30)
[2017-11-22] MEDS ORDERED: AMIODARONE 200 MG TABLET PO SCH (11:30)
[2017-11-22] MEDS ORDERED: ERGOCALCIFEROL 50,000 UNIT CAPSULE PO SCH (11:30)
[2017-11-22] MEDS ORDERED: IRON SUCROSE COMPLEX 100MG/5ML IV SCH (12:00)
[2017-11-22 13:35] VITALS: BP 133/91
[2017-11-22] MEDS ORDERED: DILTIAZEM 125 MG in DEXTROSE 5% 100 ML IV SCH (18:38)
[2017-11-22] MEDS ORDERED: RISPERIDONE 2 MG TABLET PO SCH (21:00)
[2017-11-23] MEDS ORDERED: FUROSEMIDE 20 MG/2 ML IV SCH (09:00)
[2017-11-23] MEDS ORDERED: LISINOPRIL 5 MG TABLET PO SCH (09:00)
[2017-11-23] MEDS ORDERED: FUROSEMIDE 40 MG TABLET PO SCH (09:00)
[2017-11-24] MEDS ORDERED: FERROUS GLUCONATE 324 MG TABLET PO SCH (23:55)
== END 2017-11-22 17:56 | disposition left against medical advice (07) | DRG 291 ==
LOC: ED 19:56 → EDIP 20:00 → 5SO 20:48
PROVIDERS: ADMIT Internal Medicine; ATTEND Internal Medicine
DX: I13.0 Hypertensive heart and chronic kidney disease with heart failure and stage 1 through stage 4 chronic kidney disease, or unspecified chronic kidney disease (principal); I50.43 Acute on chronic combined systolic (congestive) and diastolic (congestive) heart failure; E43 Unspecified severe protein-calorie malnutrition; D68.59 Other primary thrombophilia; D50.9 Iron deficiency anemia, unspecified; E11.22 Type 2 diabetes mellitus with diabetic chronic kidney disease; I27.20 Pulmonary hypertension, unspecified; I34.0 Nonrheumatic mitral (valve) insufficiency; Z53.21 Procedure and treatment not carried out due to patient leaving prior to being seen by health care provider; J44.9 Chronic obstructive pulmonary disease, unspecified; F29 Unspecified psychosis not due to a substance or known physiological condition; N18.3 Chronic kidney disease, stage 3 (moderate); I48.2 Chronic atrial fibrillation; Z59.0 Homelessness; Z87.891 Personal history of nicotine dependence; Z91.14 Patient's other noncompliance with medication regimen; Z91.19 Patient's noncompliance with other medical treatment and regimen; Z68.31 Body mass index [BMI] 31.0-31.9, adult
CPT/HCPCS: 36415; 71045; 80053; 82306; 82607; 82728; 83540; 83550; 83880; 84439; 84443; 84466; 84484; 85025; 85610; 85730; 93005; 96365; J1644; J1756; J1940